=== PATIENT | female | born 1965 | race Two or more races ===

== ENCOUNTER 2018-01-11 23:09 | Emergency (ER) | payer SELFPAY ==
[~2018-01-11] VITALS: Ht 157.5 cm; Wt 64.4 kg
[2018-01-11 23:12] VITALS: BP 116/72
[2018-01-12] MEDS ORDERED: TRAM50TA PO (00:27)
--- NOTE | 2018-01-12 00:27 | PHYS DOC ---
Past Medical History Past Medical History: Asthma Past Surgical History: No Surgical History Alcohol Use: None Drug Use: None Adult General Chief Complaint Chief Complaint: KNEE INJURY HPI HPI Patient is a 52 year old female presents to the ED complaining of right knee pain 2 weeks ago. 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 Describes the pain as sharp. Rates the pain as 6 out of 10. Patient able to ambulate without assistance. Denies weakness, calf pain, swelling, dizziness, paresthesias, or head/neck injury. Review of Systems Review of Systems Constitutional: Denies fever or chills [] Respiratory: Denies cough or shortness of breath [] Cardiovascular: No additional information not addressed in HPI [] GI: Denies abdominal pain, nausea, vomiting, bloody stools or diarrhea [] : Denies dysuria or hematuria [] Musculoskeletal: Complains of knee pain. Denies back pain. Integument: Denies rash or skin lesions [] Neurologic: Denies headache, focal weakness or sensory changes [] All other systems were reviewed and found to be within normal limits, except as documented in this note. Allergies Allergies Allergies Coded Allergies Type Severity Reaction Last Updated Verified acetaminophen Allergy Unknown 01/11/18 Yes Physical Exam Physical Exam Constitutional: Well developed, well nourished, no acute distress, non-toxic appearance. [] HENT: Normocephalic, atraumatic Skin: Warm, dry, no erythema, no rash. [] Back: No tenderness, no CVA tenderness. [] Extremities: mild right anterior knee tenderness, no cyanosis, no clubbing, ROM intact, no edema. [] Neurologic: Alert and oriented X 3, normal motor function, normal sensory function, no focal deficits noted. [] Psychologic: Affect normal, judgement normal, mood normal. [] Current Patient Data Vital Signs Vital Signs Date Time Temp Pulse Resp B/P (MAP) Pulse Ox O2 Delivery O2 Flow Rate FiO2 01/11/18 23:12 98.1 74 18 116/72 (87) 96 Room Air 98.1 EKG EKG [] Radiology/Procedures Radiology/Procedures [] Course & Med Decision Making Course & Med Decision Making Pertinent Labs and Imaging studies reviewed. (See chart for details) []Discussed imaging findings with patient. Patient's pain improved. States she is feeling much better. Discussed follow-up with orthopedics if pain persists. Provided contact information/education. Discussed reasons to return to the ED. Patient understands and agrees with plan. Attending physician attestation: I was working at the time of this patient's ER visit and was available for consultation, but did not personally interview, examine, or directly take part in the patient's care. DO Anita Montalvo Disclaimer [employer] Disclaimer This electronic medical record was generated, in whole or in part, using a voice recognition dictation system. Departure Departure Impression: Primary Impression: Knee sprain Disposition: HOME, SELF-CARE Condition: IMPROVED Referrals: NO PCP (PCP) THA AGUILERA MD Patient Instructions: Knee Sprain Scripts Tramadol Hcl (TRAMADOL HCL) 50 Mg Tablet 50 MG PO Q4HRS PRN for PAIN, #10 TAB Prov: MAURO ALLRED 01/12/18 MAURO ALLRED Jan 12, 2018 00:27 STEW LU DO Jan 15, 2018 06:19
--- NOTE | 2018-01-12 04:12 | RAD ---
KNEE 3 VIEWS RIGHT Clinical Indication: knee pain after injury Comparison: None. Findings: There is no acute fracture or dislocation. The tricompartmental joint spaces are maintained. The patella is in anatomic position. There is no soft tissue abnormality. There is no joint effusion. IMPRESSION: No acute fracture. Electronically signed by: Dorian Caballero MD (01/12/2018 4:09 AM) [facility]
== END 2018-01-12 00:32 | disposition home or self-care (01) ==
LOC: ER 23:09
DX: S83.91XA Sprain of unspecified site of right knee, initial encounter (principal); J45.909 Unspecified asthma, uncomplicated; Z88.8 Allergy status to other drugs, medicaments and biological substances; W01.0XXA Fall on same level from slipping, tripping and stumbling without subsequent striking against object, initial encounter; Y93.89 Activity, other specified; Y92.89 Other specified places as the place of occurrence of the external cause; Y99.8 Other external cause status
CPT/HCPCS: 73562; 99284